=== PATIENT | female | born 1980 | race Two or more races ===

== ENCOUNTER 2019-09-22 08:46 | Day surgery (SDC) | payer OTHER ==
[~2019-09-22] VITALS: Ht 160 cm; Wt 110.2 kg
[2019-09-22] VITALS (9 sets, daily range): BP systolic 124–157; BP diastolic 76–91
--- NOTE | 2019-09-22 07:18 | Operative Note - PDOC ---
Operative Note Operative Note Pre-op Diagnosis: left shoulder internal derangement Procedure: see op report Post-op Diagnosis: same as pre-op plus Operative Findings: consistent w/pre-op dx studies Anesthesia: regional Specimen: none Complications: none Condition: stable Estimated Blood Loss: none Implant(s) used?: No Nghia Cash MD September 22, 2019 07:18
--- NOTE | 2019-09-22 07:18 | Pre-Procedure Note/Attestation ---
Pre-Procedure Note/Attestation Complete Prior to Procedure Planned Procedure: left Procedure Narrative: shoulder arthroscopy, sad Indications for Procedure Pre-Operative Diagnosis: left shoulder internal derangement Attestation I attest that I discussed the nature of the procedure; its benefits; risks and complications; and alternatives (and the risks and benefits of such alternatives ), prior to the procedure, with the patient (or the patient's legal client relations representative). I attest that, if there was a reasonable possibility of needing a blood transfusion, the patient (or the patient's legal client relations representative) was given the [facility] standardized written summary, pursuant to the [place] Blood Safety Act ([place] Health and Safety Code # 1645, as amended). I attest that I re-evaluated the patient just prior to the surgery and that there has been no change in the patient's H&P, except as documented below: Nghia Cash MD September 22, 2019 07:18
[~2019-09-22 08:46] MED LIST: D5 1/2NS 1,000 ML IV SCH; HYDROcodone/Acetamin 5/325 tab ORAL PRN; HYDROmorphone 1mg/ml Carpuject SUBQ PRN; MULTIVITAMINS1 EAC2 ORAL; Tylenol #3 tab (300mg/30mg) ORAL PRN; ceFAZolin 1gm IVPB IVPB ONE; celeBREX 200mg Cap **SURGERY PATIENTS ONLY ORAL ONE; oxyCONTIN 20mg tab ORAL ONE
[2019-09-22] MEDS ORDERED: Duramorph PF 5mg/10ml amp ONE (09:28)
[2019-09-22] MEDS ORDERED: Kenalog-40 1ml Vial ONE (09:28)
[2019-09-22] MEDS ORDERED: Ketorolac 30mg Inj ONE ×2 (09:28→11:24)
[2019-09-22] MEDS ORDERED: Ropivacaine 5mg/ml Vial 20ml INJ ONE (09:31)
[2019-09-22] MEDS ORDERED: Lidocaine 1% MPF 10mg/ml 5ml ONE (09:31)
[2019-09-22] MEDS ORDERED: oxyCONTIN 20mg tab ORAL ONE (09:34)
[2019-09-22] MEDS ORDERED: celeBREX 200mg Cap **SURGERY PATIENTS ONLY ORAL ONE (09:34)
[2019-09-22] MEDS ORDERED: EPINEPHrine 1mg/1ml Amp ONE (09:34)
[2019-09-22] MEDS ORDERED: Rocuronium Bromide 100mg/10ml Inj IV ONE (09:35)
[2019-09-22] MEDS ORDERED: Succinylcholine 20mg/ml 10ml vial ONE (09:36)
[2019-09-22] MEDS ORDERED: Midazolam 2mg/2ml Inj ONE (09:37)
[2019-09-22] MEDS ORDERED: fentaNYL 100 mcg/2 mL IV ONE (09:37)
[2019-09-22] MEDS ORDERED: NS Irrig 2000ml IRRIG ONE ×2 (09:57→11:10)
[2019-09-22] MEDS ORDERED: Neostigmine 1mg/ml 10ml Inj ONE (11:24)
[2019-09-22] MEDS ORDERED: Glycopyrrolate 0.2mg/ml 1ml Vial ONE (11:24)
--- NOTE | 2019-09-22 11:33 | Anethesia Preoperative Eval ---
Anesthesia Pre-op PMH/ROS General Date of Evaluation: September 22, 2019 Time of Evaluation: 11:30 Anesthesiologist: Sacha ASA Score: ASA 2 Mallampati Score Class I : Soft palate, uvula, fauces, pillars visible Class II: Soft palate, uvula, fauces visible Class III: Soft palate, base of uvula visible Class IV: Only hard plate visible Mallampati Classification: Class II Surgeon: Shailesh Diagnosis: L shoulder pain Surgical Procedure: L shoulder scope Anesthesia History: none Family History: no anesthesia problems Allergies: Coded Allergies: No Known Allergies (Unverified , 09/21/19) Medications: see eMAR Patient NPO?: Yes Past Medical History Cardiovascular: Denies: HTN, CAD, NE, valve dz, arrhythmia, other Pulmonary: Reports: NEELA; Denies: asthma, COPD, other Gastrointestinal/Genitourinary: Reports: GERD; Denies: CRI, ESRD, other Neurologic/Psychiatric: Denies: dementia, CVA, depression/anxiety, TIA, other Endocrine: Denies: DM, hypothyroidism, steroids, other HEENT: Denies: cataract (L), cataract (R), glaucoma, [place] (L), [place] (R), other Hematology/Immune: Denies: anemia, DVT, bleeding disorder, other Musculoskeletal/Integumentary: Denies: OA, RA, DJD, DDD, edema, other Other: obesity PMH Narrative: as above PSxH Narrative: Anal surgery Anesthesia Pre-op Phys. Exam Physician Exam Last Vital Signs Date Time Temp Pulse Resp B/P (MAP) Pulse Ox O2 Delivery O2 Flow Rate FiO2 09/22/19 09:20 97.0 79 18 124/79 100 Room Air Constitutional: NAD Neurologic: CN 2-12 intact Cardiovascular: RRR, no M/R/G Respiratory: CTA Gastrointestinal: other - obesity Airway Exam Mallampati Score: Class II MO: full Neck: short ROM: full Teeth: intact Dentures: no upper, no lower Anesthesia Pre-op A/P Labs see chart Urine Test Test 09/22/19 08:50 Urine HCG, Qualitative Negative (NEGATIVE) Studies Pre-op Studies: EKG - NSR Risk Assessment & Plan Assessment: ASA 2 Plan: GA with ETT Brachial plexus block for postop pain control Status Change Before Surgery: No Pre-Antibiotics Drug: Ancef 2gr. Given Within 1 Hr of Incision: Yes Time Given: 11:16 Benito Goncalves MD September 22, 2019 11:33
[2019-09-22] MEDS ORDERED: Duramorph PF 5mg/10ml amp EPIDUR ONE (11:37)
[2019-09-22] MEDS ORDERED: Ketorolac 30mg Inj IV PRN (11:45)
[2019-09-22] MEDS ORDERED: Metoclopramide 10mg/2ml Inj IVP PRN (11:45)
[2019-09-22] MEDS ORDERED: Meperidine 25mg/0.5ml Inj (FOR RIGORS ONLY) IV PRN (11:45)
--- NOTE | 2019-09-22 12:13 | Immediate Post-Op Evaluation ---
Immediate Post-Op Evalulation Immediate Post-Op Evalulation Procedure: L shoulder scope subacromion decompression Date of Evaluation: September 22, 2019 Time of Evaluation: 12:12 IV Fluids: 800 Blood Products: none Estimated Blood Loss: <50 Urinary Output: none Blood Pressure Systolic: 148 Blood Pressure Diastolic: 76 Pulse Rate: 82 Respiratory Rate: 20 O2 Sat by Pulse Oximetry: 99 Temperature (Fahrenheit): 97.5 Pain Score (1-10): 1 Nausea: No Vomiting: No Complications none Patient Status: reacts, patent, extubated, none Hydration Status: adequate Benito Goncalves MD September 22, 2019 12:13
--- NOTE | 2019-09-22 18:00 | Operative Note - Dictated ---
DATE OF OPERATION: 09/22/2019 PREOPERATIVE DIAGNOSES: 1. Left shoulder rotator cuff tear. 2. Left shoulder impingement syndrome. POSTOPERATIVE DIAGNOSES: 1. Left shoulder rotator cuff tear. 2. Left shoulder impingement syndrome. PROCEDURES: 1. Left shoulder diagnostic arthroscopy and intra-articular debridement. 2. Left shoulder subacromial decompression bursectomy. SURGEON: Nghia Cash MD. ANESTHESIA: MAC with interscalene. INDICATION FOR PROCEDURE: Patient is a pleasant 39-year-old female with progressive left shoulder pain. She failed conservative treatment. Elected to undergo left shoulder diagnostic arthroscopy, subacromial decompression bursectomy with concurrent debridement with repair of rotator cuff. Risks, limitations, expectations, complication of the procedure were discussed in detail. All questions addressed. DESCRIPTION OF PROCEDURE: After informed consent was obtained, patient was brought to the operating room. Patient was placed under interscalene general anesthesia. Left shoulder was prepped and draped in a sterile manner. Time-out was performed. Inferolateral stab incision was then made. Trocar introduced in the glenohumeral joint. No chondral damage. Anterior labrum was intact along with the subscap tendon. Superior labrum was intact. The undersurface of the rotator cuff was intact. The camera was then repositioned in the subacromial space. There was hypertrophied bursal tissue. Complete bursectomy was performed. Identified the anterior aspect of the acromion. Acromioplasty was started from lateral to medial and completed from posterior to anterior. Bursectomy was completed. Instruments were removed. Portal sites were closed with 3-0 Monocryl sutures. Steri-Strips and a sterile dressing were applied. ESTIMATED BLOOD LOSS: None. COMPLICATIONS: None. SPECIMENS: None. IMPLANTS: None. Nghia Cash M.D. DR: ENE JOB#: [id number] CC:
== END 2019-09-22 15:15 | disposition home or self-care (01) ==
LOC: SUR 08:46
DX: M75.42 Impingement syndrome of left shoulder (principal); K21.9 Gastro-esophageal reflux disease without esophagitis; E66.9 Obesity, unspecified; Z68.41 Body mass index [BMI] 40.0-44.9, adult
CPT/HCPCS: 29822; 81025; 94003; J0171; J0330; J0690; J1885; J2250; J2405; J2704; J2710; J2795; J3010; J3301; 94150